=== PATIENT | male | born 1965 | race Caucasian/White ===

== ENCOUNTER 2017-10-04 15:08 | Emergency (ER) | payer OTHER ==
[2017-10-04] MEDS ORDERED: cloNIDine 0.1 MG Tab PO ONE (15:14)
[2017-10-04] MEDS ORDERED: cefTRIAXone 1 GM Vial IM ONE (15:40)
[2017-10-04] MEDS ORDERED: Lidocaine 1% 20 ML MDV INJECT ONE (15:40)
[2017-10-04] MEDS ORDERED: methylPREDNISolone Sodium Succinate 125 MG/2 ML SDV IM SCH (15:45)
--- NOTE | 2017-10-04 15:46 | EDM.PDOC ---
ED HPI GENERAL MEDICAL PROBLEM - General Chief Complaint: Respiratory Problem Stated Complaint: cold symptoms Time Seen by Provider: 10/04/17 15:25 Source of Information: Reports: Patient History Limitations: Reports: No Limitations - History of Present Illness INITIAL COMMENTS - FREE TEXT/NARRATIVE: Patient presents for complaints of being ill for the last 8 days. He has had increased sinus congestion and drainage, chest tightness. Does not increase wheezing and shortness of breath. He has felt feverish at times. Admits to a headache. Blood pressure was noted to be very high on arrival. Gave Clonidine 0.1 mg. Admits to using several decongestants over the week. Denies ever having a history of hypertension. Has borderline diabetes. Has not taken his Metformin now as he has been out for a while. He also admits to a history of Hepatitis C that he hasn't had to do anything with for many years. He admits he hasn't been to a doctor in quite some time. Onset: Gradual Duration: Day(s): Location: Reports: Generalized Quality: Reports: Pressure Severity: Moderate Treatments DIRECTOR HRIS: Reports: Home Treatments Other Treatments DIRECTOR HRIS: multiple OTC cold medicines Headache Pain Score (Numeric/FACES): 3 - Related Data Allergies Allergy/AdvReac Type Severity Reaction Status Date / Time No Known Allergies Allergy Verified 10/04/17 15:12 Home Meds: Home Meds Albuterol Sulfate [Proair Hfa] 8.5 gm IH ASDIRECTED 03/08/17 [History] metFORMIN [Glucophage XR] 500 mg PO DAILY 03/08/17 [History] Past Medical History - Past Health History Medical/Surgical History: Denies Medical/Surgical History HEENT History: Reports: None Cardiovascular History: Reports: None Respiratory History: Reports: Asthma Gastrointestinal History: Reports: Hepatitis Genitourinary History: Reports: None Musculoskeletal History: Reports: None Neurological History: Reports: None Psychiatric History: Reports: None Endocrine/Metabolic History: Reports: Diabetes, Type II, Other (See Below) Other Endocrine/Metabolic History: pt reports boarderline diabetes Hematologic History: Reports: None Immunologic History: Reports: None Oncologic (Cancer) History: Reports: None Dermatologic History: Reports: None - Infectious Disease History Infectious Disease History: Reports: Chicken Pox, Hepatitis C - Past Surgical History Cardiovascular Surgical History: Reports: None Male Surgical History: Reports: None Social & Family History - Family History Family Medical History: Noncontributory - Tobacco Use Smoking Status *Q: Current Every Day Smoker Years of Tobacco use: 37 Packs/Tins Daily: 1 - Alcohol Use Days Per Week of Alcohol Use: 4 Number of Drinks Per Day: 1 Total Drinks Per Week: 4 - Recreational Drug Use Recreational Drug Use: No ED ROS GENERAL - Review of Systems Review Of Systems: See Below Constitutional: Reports: Fever, Chills, Malaise, Weakness, Fatigue. Denies: Decreased Appetite HEENT: Reports: Rhinitis, Sinus Problem, Throat Pain. Denies: Ear Pain, Vertigo Respiratory: Reports: Shortness of Breath, Wheezing, Cough, Sputum Cardiovascular: Denies: Chest Pain, Edema, Lightheadedness Endocrine: Reports: Fatigue GI/Abdominal: Denies: Abdominal Pain, Nausea, Vomiting : Reports: No Symptoms Musculoskeletal: Reports: No Symptoms Skin: Reports: No Symptoms Neurological: Reports: No Symptoms ED EXAM, GENERAL - Physical Exam Exam: See Below Exam Limited By: No Limitations General Appearance: Alert, WD/WN, No Apparent Distress Ears: Normal External Exam, Normal TMs Nose: Normal Inspection, Nasal Drainage, Other (erythema to turbinates bilaterally) Throat/Mouth: Normal Inspection, Other (posterior pharynx is red) Head: Normocephalic Neck: Normal Inspection, Supple, Non-Tender Respiratory/Chest: Decreased Breath Sounds, Rhonchi, Wheezing Cardiovascular: Regular Rate, Rhythm GI/Abdominal: Normal Bowel Sounds, Soft, Non-Tender Neurological: Alert, Oriented Skin Exam: Warm, Dry Course - Vital Signs Last Recorded V/S: Last Vital Signs Temp 98.2 F 10/04/17 15:08 Pulse 85 10/04/17 15:08 Resp 18 10/04/17 15:08 BP 178/100 H 10/04/17 15:56 Pulse Ox 95 10/04/17 15:08 - Orders/Labs/Meds Orders: Active Orders 24 hr Category Date Time Status methylPREDNISolone Sod Succ [Solu-MEDROL] Med 10/04/17 15:45 Active 125 mg IM Q24H Medication Orders Methylprednisolone Sodium Succinate (Solu-Medrol) 125 mg IM Q24H [facility] Last Admin: 10/04/17 15:50 Dose: 125 mg Labs: Laboratory Tests 10/04/17 10/04/17 Range/Units 15:40 15:40 WBC 5.6 (5.0-10.0) 10^3/uL RBC 3.80 L (4.50-6.00) 10^6/uL Hgb 14.6 (14.0-18.0) g/dL Hct 40.0 (40.0-54.0) % MCV 105.3 H (82.0-94.0) fL MCH 38.4 H (27.0-32.0) pg MCHC 36.5 (33.0-38.0) g/dL RDW Coeff of Tiffany 13.1 (11.0-15.0) % Plt Count 76 L (150-400) 10^3/uL Neut % (Auto) 66.7 (35-85) % Lymph % (Auto) 17.4 (10-55) % [place] % (Auto) 12.0 (0-16) % Eos % (Auto) 3.4 (0-5) % Baso % (Auto) 0.5 (0-3) % Neut # (Auto) 3.71 (1.80-7.00) 10^3/uL Lymph # (Auto) 0.97 L (1.00-4.80) 10^3/uL [place] # (Auto) 0.67 (0.00-0.80) 10^3/uL Eos # (Auto) 0.19 (0.00-0.45) 10^3/uL Baso # (Auto) 0.03 10^3/uL Sodium 141 (136-145) mEq/L Potassium 4.6 (3.5-5.0) mEq/L Chloride 106 (98-106) mEq/L Carbon Dioxide 27 (21-32) mmol/L BUN 15 (7-18) mg/dL Creatinine 0.8 (0.7-1.3) mg/dL Est Cr Clr Drug Dosing 99.69 mL/min Estimated GFR (MDRD) > 60 (>=60) mL/min Glucose 98 (75-99) mg/dL Calcium 8.6 (8.4-10.1) mg/dL Total Bilirubin 0.9 (0.0-1.0) mg/dL AST 110 H (15-37) U/L ALT 70 (12-78) U/L Alkaline Phosphatase 201 H (46-116) U/L Total Protein 8.0 (6.4-8.2) g/dL Albumin 2.8 L (3.4-5.0) g/dL Meds: Medications Generic Name Dose Route Start Last Admin Trade Name David PRN Reason Stop Dose Admin Methylprednisolone Sodium Succinate 125 mg 10/04/17 15:45 10/04/17 15:50 Solu-Medrol IM 125 mg Q24H KAROL Administration Discontinued Medications Generic Name Dose Route Start Last Admin Trade Name David PRN Reason Stop Dose Admin Ceftriaxone Sodium 1 gm 10/04/17 15:40 10/04/17 15:49 Rocephin IM 10/04/17 15:41 1 gm ONETIME ONE Administration Clonidine HCl 0.1 mg 10/04/17 15:14 10/04/17 15:17 Catapres PO 10/04/17 15:15 0.1 mg PREPRO ONE Administration Lidocaine HCl 20 ml 10/04/17 15:40 10/04/17 15:50 Xylocaine 1% INJECT 10/04/17 15:41 20 ml ONETIME ONE Administration - Re-Assessments/Exams Free Text/Narrative Re-Assessment/Exam: 10/04/17 Discussion held with patient about his blood pressure. Is here working on assignment and will be for a time yet. Will need him to follow up on his blood pressure this week. Labs done today. Departure - Departure Time of Disposition: 16:14 Disposition: Home, Self-Care 01 Condition: Fair Clinical Impression: Exacerbation of asthma, Sinusitis - Discharge Information Referrals: PCP,None [Primary Care Provider] - Forms: ED Department Discharge Additional Instructions: 1. Push fluids 2. Tylenol and ibuprofen for discomfort 3. Avoid decongestants. 4. Ceftin 250 mg twice a day for 10 days 5. Prednisone 20 mg 2 tabs daily for 4 days 6. Come to the clinic tomorrow for blood pressure check, if still high, will send in script 7. Call with any questions - My Orders Last 24 Hours: My Active Orders 10/04/17 15:45 methylPREDNISolone Sod Succ [Solu-MEDROL] 125 mg IM Q24H - Assessment/Plan Last 24 Hours: My Active Orders 10/04/17 15:45 methylPREDNISolone Sod Succ [Solu-MEDROL] 125 mg IM Q24H
[2017-10-04 16:12] LABS: CHLORIDE,CL 106 mEq/L (98-106); SODIUM,NA 141 mEq/L (136-145)
[2017-10-04 16:20] VITALS: BP 153/79
== END 2017-10-04 16:25 | disposition home or self-care (01) ==
LOC: CC.ED 15:08
DX: J45.901 Unspecified asthma with (acute) exacerbation (principal); J32.9 Chronic sinusitis, unspecified; E11.9 Type 2 diabetes mellitus without complications; Z79.84 Long term (current) use of oral hypoglycemic drugs
CPT/HCPCS: 36415; 80053; 85025; 96372; 99283; A9270-GY; J0696; J2930